=== PATIENT | male | born 1955 | race Caucasian/White ===

== ENCOUNTER 2025-02-06 13:52 | Emergency (ER) | payer OTHER, MEDICARE ==
[~2025-02-06] VITALS: Ht 177.8 cm; Wt 107.0 kg
[2025-02-06] MEDS ORDERED: fentaNYL citrate 100 MCG/2 ML VIAL IM ONE (13:55)
[2025-02-06] MEDS ORDERED: fentaNYL citrate 100 MCG/2 ML VIAL ONE (13:56)
[2025-02-06] MEDS ORDERED: LACTATED RINGER'S 1,000 ML IV ONE (14:00)
[2025-02-06 14:13] LABS: BASOPHILS 0.6 % (0.2-1.2); EOSINOPHILS 2.5 % (0.8-7.0); LYMPHOCYTES 14.9 % (21.8-53.1); MCH 28.8 PG (25.7-32.2); MCHC 31.8 g/dL (32.3-36.5); MCV 90.7 fL (79.0-92.2); MONOCYTES 4.6 % (5.3-12.2); NEUTROPHILS 76.6 % (34.0-67.9); RBC 4.75 M/uL (4.63-6.08)
[2025-02-06] MEDS ORDERED: fentaNYL citrate 100 MCG/2 ML VIAL IV ONE ×2 (14:15→15:00)
[2025-02-06 14:33] LABS: ALCOHOL, MEDICAL <3 ng/dL (<3); ALT (SGPT) 33 U/L (14-59); AST (SGOT) 23 U/L (15-37); GLOMERULAR FILTRATION RATE,EST 82 mL/min (>60); PROTEIN, TOTAL 7.3 g/dL (6.4-8.2); UREA NITROGEN 23 mg/dL (7-18)
[2025-02-06 15:02] LABS: ABO A; ANTIBODY SCREEN NEGATIVE; RH POSITIVE
[2025-02-06 15:16] LABS: INR 3.37 (0.80-1.30); PROTIME 33.0 Sec (11.2-14.2)
[2025-02-06] MEDS ORDERED: fentaNYL citrate 100 MCG/2 ML VIAL IV PRN (16:00)
[2025-02-06 16:20] LABS: BLOOD/HGB, URINE NEGATIVE (Negative); KETONE, URINE NEGATIVE (Negative); LEUK ESTERASE, URINE NEGATIVE (negative); NITRITE, URINE NEGATIVE (negative)
[2025-02-06 16:27] LABS: AMPHETAMINES, URINE NEGATIVE (NEGATIVE); BARBITURATES, URINE NEGATIVE (NEGATIVE); BENZODIAZEPINE, URINE NEGATIVE (NEGATIVE); CANNABINOID, URINE NEGATIVE (NEGATIVE); COCAINE, URINE NEGATIVE (NEGATIVE); ECSTASY, URINE NEGATIVE (NEGATIVE); FENTANYL, URINE POSITIVE (NEGATIVE); METHADONE, URINE NEGATIVE (NEGATIVE); OPIATES, URINE NEGATIVE (NEGATIVE); OXYCODONE, URINE NEGATIVE (NEGATIVE); PHENCYCLIDINE, URINE NEGATIVE (NEGATIVE)
[2025-02-06 18:09] VITALS: BP 130/85
--- NOTE | 2025-02-07 08:16 | EKG ---
[facility] [address] [facility] [place] [address] Signed Atrial-sensed ventricular-paced rhythm with prolonged AV conduction Biventricular pacemaker detected Abnormal ECG No previous ECGs available Confirmed by Tanmay Aleman MD ([id number]) on 02/07/2025 8:16:30 AM Electronically Signed By: TANMAY ALEMAN MD 02/07/25 0816 PATIENT NAME: SUELLEN PEREZ MABEL Electrocardiogram DATE OF : 57 PHYSICIAN: TANMAY ALEMAN MD REPORT #: [id number] REPORT IS CONFIDENTIAL AND NOT TO BE RELEASED WITHOUT AUTHORIZATION
== END 2025-02-06 17:50 | disposition short-term general hospital (02) ==
LOC: ED 13:52
PROVIDERS: Emergency Medicine
DX: S22.42XA Multiple fractures of ribs, left side, initial encounter for closed fracture (principal); S42.102A Fracture of unspecified part of scapula, left shoulder, initial encounter for closed fracture; S22.31XA Fracture of one rib, right side, initial encounter for closed fracture; V80.010A Animal-rider injured by fall from or being thrown from horse in noncollision accident, initial encounter
CPT/HCPCS: 36415; 70450; 71045; 71260; 72125; 74177; 80053; 80307; 81003; 83605; 85025; 85610; 86850; 86900; 86901; 93005; 93010; 99285-25; G0480; J2405; J3010; J7121; Q9967